=== PATIENT | female | born 1945 | race Caucasian/White ===

== ENCOUNTER 2021-04-21 14:47 | Inpatient (IN) ==
--- NOTE | 2021-04-21 15:27 | Emergency Department Note ---
Chest Pain HPI General Chief Complaint: Chest Pain Stated Complaint: chest pain, SOB Time Seen by Provider: 04/21/21 15:22 Source: patient Mode of arrival: ambulatory Limitations: no limitations History of Present Illness HPI Narrative: Patient is a 76-year-old that arrives to the emergency department complaining of shortness of breath. History is provided by the patient. She says last Thursday after heavy snow fall she was shoveling her car out when she became suddenly lightheaded fatigued and short of breath. She rested for several minutes and then resumed her activity and once again became quite fatigued lightheaded and short of breath. This resolved after several minutes of rest. Over the past 2 days, she has also been having decreased exercise tolerance and feeling more short of breath. She says she feels quite fatigued and winded with minimal amounts of exertion. She has had a cough productive of nonpurulent sputum. She has mild discomfort in her epigastric region but denies any actual chest pain. She has never felt like this before. She was assessed by her daughter who is a medical professional and was found to be hypoxemic so she decided to come to the emergency department for further evaluation. She took 162 mg of aspirin prior to emergency department arrival. She has not been vaccinated for COVID-19. Related Data Allergies Allergy/AdvReac Type Severity Reaction Status Date / Time No Known Drug Allergies Allergy Unverified 04/21/21 14:52 Review of Systems ROS ROS Narrative: Narrative: All systems ED: reviewed and negative except as stated. Gastrointestinal: Denies abdominal pain, nausea, vomiting or diarrhea PFSH Narrative Patient History Narrative: Narrative: Medical/Surgical/Family History All Active Problems (Updated 04/21/21 @ 17:20 by Richard Lombardi DO) Pulmonary embolism (Acute) Social History Smoking Status: Never smoker Alcohol Intake Frequency: does not drink Substance Use: does not use Exam Narrative Narrative: I reviewed the vital signs. Gen -patient is awake and alert and in no acute distress. The patient is well groomed. HEENT -head is atraumatic. There is no conjunctival pallor or scleral icterus. Mucous membranes are moist. CV -S1-S2 regular rate and rhythm. Peripheral pulses are equal to palpation in bilateral upper extremities. There is no JVD. Resp -breathing is nonlabored. Lungs have mild rhonchi bilaterally. There is no cyanosis. GI - Abdomen is soft and nontender to palpation. There is no guarding or rebound tenderness. Derm -skin is warm and dry. There is no visible rash. MSK -present extremities are atraumatic. Psych -patient has appropriate affect. The patient does not appear internally stimulated. Neuro -patient answers questions appropriately with fluent speech. Patient moves all present extremities equally. General Limitations: no limitations Course Vital Signs Vital signs: Vital Signs Pulse Rate 77 04/21/21 14:58 Respiratory Rate 19 04/21/21 14:58 Blood Pressure 171/92 04/21/21 14:58 Pulse Oximetry (%) 89 L 04/21/21 14:58 Temperature 96.9 F L 04/21/21 15:00 Pulse Rate 79 04/21/21 17:01 Respiratory Rate 16 04/21/21 17:01 Blood Pressure 181/110 04/21/21 17:01 Pulse Oximetry (%) 94 04/21/21 17:01 [facility] Narrative Medical decision making narrative: Patient presents with fatigue and decreased exercise tolerance. I personally performed interpreted limited bedside transthoracic echocardiogram and pulmonary ultrasound. Lung gutiérrez are Predominant bilaterally. I obtained parasternal long and short axis views which were somewhat limited by the patient's body habitus and positioning. There is no pericardial effusion. There is no evidence of right ventricular strain. There is slightly diminished left ventricular ejection fraction. Given the patient's clear chest x-ray and clear ultrasound findings I obtained a CT pulmonary angiogram to evaluate her hypoxia this reveals multiple bilateral pulmonary emboli. The patient has normal troponin and elevated BNP. I discussed the test results with the patient. Given her elevated BNP and her new oxygen requirement I recommended she be admitted for further treatment and stabilization and she was agreeable. I discussed the patient's history examination and diagnostic findings with Dr. Syed, who agrees with the plan of care and accepts admission. Critical care time I provided 32 minutes of critical care time. This was in addition to any separately billable procedures. The patient was given supplemental oxygen to treat her hypoxemic respiratory failure. She was given IV heparin to stabilize her pulmonary embolus and prevent further clot propagation which could lead to hemodynamic instability. the patient was closely monitored for response to treatment and stability of vital signs throughout their emergency department stay. Lab Data Lab results reviewed: Yes I reviewed the patient's lab results. Result diagrams: 04/21/21 15:04 04/21/21 15:04 Labs: Lab Results 04/21/21 04/21/21 04/21/21 Range/Units 15:04 15:04 15:04 WBC 10.8 (4.5-11.0) K/mcL RBC 4.54 (3.59-5.38) M/mcL Hgb 14.1 (11.2-15.7) g/dL Hct 43.1 (34.1-44.9) % MCV 94.9 (80.0-100.0) fL MCH 31.1 (26.0-34.0) pg MCHC 32.7 (31.0-36.0) g/dL RDW 16.0 H (11.5-14.5) % Plt Count 237 (140-440) K/mcL MPV 10.8 H (7.4-10.4) fL Neut % (Auto) 68.0 (38.0-78.0) % Lymph % (Auto) 22.8 (15.5-49.0) % [place] % (Auto) 7.3 (1.0-12.0) % Eos % (Auto) 1.4 (0.0-7.0) % Baso % (Auto) 0.5 (0.0-2.0) % Lymph # (Auto) 2.46 (1.50-4.80) K/mcL [place] # (Auto) 0.79 (0.10-0.90) K/mcL Eos # (Auto) 0.15 (0.00-0.70) K/mcL Baso # (Auto) 0.05 (0.00-0.30) K/mcL Absolute Neutrophils 7.35 (1.80-8.00) K/mcL APTT (20.0-37.0) sec Sodium 139 (133-145) mmol/L Potassium 4.1 (3.3-5.1) mmol/L Chloride 105 (96-108) mmol/L Carbon Dioxide 20 L (22-30) mmol/L Anion Gap 14.0 (8.0-16.0) BUN 18 (8-23) mg/dL Creatinine 0.8 (0.6-1.1) mg/dL POC Creatinine (0.6-1.2) mg/dL GFR Calculation 72 Glucose 119 H (70-105) mg/dL Calcium 8.5 L (8.6-10.4) mg/dL Total Bilirubin 0.5 (0.1-1.0) mg/dL AST 64 H (<32) U/L ALT 85 H (<40) U/L Alkaline Phosphatase 137 H (39-117) U/L NT-Pro-B Natriuret Pep (<450.0) pg/mL Total Protein 6.6 (5.9-8.4) gm/dL Albumin 3.8 (3.2-5.2) gm/dL Globulin 2.8 (2.2-3.7) gm/dL Albumin/Globulin Ratio 1.4 (1.0-2.3) POC Troponin I 0.03 (0.02-0.08) ng/mL 04/21/21 04/21/21 04/21/21 Range/Units 15:04 15:48 15:48 WBC (4.5-11.0) K/mcL RBC (3.59-5.38) M/mcL Hgb (11.2-15.7) g/dL Hct (34.1-44.9) % MCV (80.0-100.0) fL MCH (26.0-34.0) pg MCHC (31.0-36.0) g/dL RDW (11.5-14.5) % Plt Count (140-440) K/mcL MPV (7.4-10.4) fL Neut % (Auto) (38.0-78.0) % Lymph % (Auto) (15.5-49.0) % [place] % (Auto) (1.0-12.0) % Eos % (Auto) (0.0-7.0) % Baso % (Auto) (0.0-2.0) % Lymph # (Auto) (1.50-4.80) K/mcL [place] # (Auto) (0.10-0.90) K/mcL Eos # (Auto) (0.00-0.70) K/mcL Baso # (Auto) (0.00-0.30) K/mcL Absolute Neutrophils (1.80-8.00) K/mcL APTT 26.6 (20.0-37.0) sec Sodium (133-145) mmol/L Potassium (3.3-5.1) mmol/L Chloride (96-108) mmol/L Carbon Dioxide (22-30) mmol/L Anion Gap (8.0-16.0) BUN (8-23) mg/dL Creatinine (0.6-1.1) mg/dL POC Creatinine 0.7 (0.6-1.2) mg/dL GFR Calculation Glucose (70-105) mg/dL Calcium (8.6-10.4) mg/dL Total Bilirubin (0.1-1.0) mg/dL AST (<32) U/L ALT (<40) U/L Alkaline Phosphatase (39-117) U/L NT-Pro-B Natriuret Pep 2792.0 H (<450.0) pg/mL Total Protein (5.9-8.4) gm/dL Albumin (3.2-5.2) gm/dL Globulin (2.2-3.7) gm/dL Albumin/Globulin Ratio (1.0-2.3) POC Troponin I (0.02-0.08) ng/mL ED POC Tests ED POC Tests: ISSAC - Influenza A Negative ISSAC - Influenza B Negative ISSAC - SARS Antigen Negative EKG Data EKG #1: EKG attestation: Yes I reviewed and interpreted this EKG. EKG results narrative: EKG performed at 2:51 PM: Sinus rhythm, rate 83. Normal P wave morphology. Left bundle branch block without Sgarbossa's criteria. There is artifact present in V6. Normal MA and QTc duration. No old EKG immediately available for comparison. EKG was interpreted by me. EKG #2: EKG attestation: Yes I reviewed and interpreted this EKG. EKG results narrative: EKG performed at 3:40 PM: Sinus rhythm, rate 75. Normal P wave morphology. Few PVCs. Left bundle branch block without Sgarbossa's criteria. Normal MA and QTc duration. No significant changes compared to the prior EKG. EKG was interpreted by me. Discharge Plan Patient/Caregiver Discharge Instructions Pt seen by STORE ASSISTANT/PA only: No Clinical Impression: Pulmonary embolism Patient Disposition: Xfer As Inpt ([facility]) Follow up with: No,PCP [Primary Care Provider] -
[2021-04-21 16:11] LABS: Basophils # (Auto) 0.05 K/mcL (0.00-0.30); Basophils % (Auto) 0.5 % (0.0-2.0); Eosinophils # (Auto) 0.15 K/mcL (0.00-0.70); Eosinophils % (Auto) 1.4 % (0.0-7.0); Hematocrit 43.1 % (34.1-44.9); Hemoglobin 14.1 g/dL (11.2-15.7); Lymphocytes # (Auto) 2.46 K/mcL (1.50-4.80); Lymphocytes % (Auto) 22.8 % (15.5-49.0); Mean Cell Volume 94.9 fL (80.0-100.0); Mean Corpuscular HGB Conc 32.7 g/dL (31.0-36.0); Mean Platelet Volume 10.8 fL (7.4-10.4); Monocytes # (Auto) 0.79 K/mcL (0.10-0.90); Monocytes % (Auto) 7.3 % (1.0-12.0); Platelet Count 237 K/mcL (140-440); RBC 4.54 M/mcL (3.59-5.38); WBC 10.8 K/mcL (4.5-11.0)
[2021-04-21 16:32] LABS: ALT/SGPT 85 U/L (<40); AST/SGOT 64 U/L (<32); Albumin 3.8 gm/dL (3.2-5.2); Albumin/Globulin Ratio 1.4 (1.0-2.3); Alkaline Phosphatase 137 U/L (39-117); Bilirubin,Total 0.5 mg/dL (0.1-1.0); Blood Urea Nitrogen 18 mg/dL (8-23); Calcium 8.5 mg/dL (8.6-10.4); Carbon Dioxide 20 mmol/L (22-30); Chloride 105 mmol/L (96-108); Globulin 2.8 gm/dL (2.2-3.7); Glomerular Filtration Rate 72; Glucose 119 mg/dL (70-105)
--- NOTE | 2021-04-21 16:34 | XRay Report ---
HISTORY: History: Chest pain and shortness of breath for one week FINDINGS: The heart is mildly enlarged. The pulmonary vessels, best seen in the left upper lobe are mildly engorged. There is no pulmonary edema, pneumonia or mass. There is no pleural effusion. Aorta is mildly tortuous. There is a small sclerotic bone island or enchondroma in the neck of of left humerus. Moderate arthritis is present at the right acromioclavicular joint. IMPRESSION: Mild cardiomegaly with borderline pulmonary vascular congestion Interpreted and Authenticated by: Teja Isbell 04/21/21
--- NOTE | 2021-04-21 16:44 | Cat Scan Report ---
History: Chest pain, shortness of breath, probable pulmonary emboli TECHNIQUE: Following injection of intravenous nonionic contrast, pulmonary arterial phase images were obtained. Sagittal, coronal and axial MIPS images were created. The radiation exposure was limited using dose reduction technology. FINDINGS: There are multiple bilateral pulmonary emboli involving second and third order arteries in both lungs. There is involvement in all lobes. The main pulmonary artery and the left and right first order pulmonary arteries are normal. The main pulmonary artery is slightly dilated and measures 3.5 cm in transverse diameter. The ascending aorta is 3.3 cm. Right ventricle is not dilated. There is mild cardiomegaly. Subtle groundglass alveolar opacities are present in the left upper lobe. There are subpleural bands of scar atelectasis in both lower lobes. No pleural effusion is present. There are no enlarged lymph nodes. There is an incidental aberrant bronchus to the right upper lobe which arises from the right side of the trachea, above the brian. There is degenerative disc disease and arthritis at multiple levels in the thoracic and lumbar spine. IMPRESSION: Multiple bilateral pulmonary emboli Mildly dilated central pulmonary artery but no ventricular dilatation Subtle groundglass alveolar opacity in the left upper lobe. This could be related to pulmonary emboli or the patient may have a superimposed infection such as COVID. Dr. Lombardi was called with the report Interpreted and Authenticated by: Teja Isbell 04/21/21
[2021-04-21] MEDS ORDERED: HEPARIN 5,000 UNIT/ML VIAL IV ONE (16:46)
[2021-04-21] MEDS ORDERED: HEPARIN SOD,PORK IN 0.45% NACL 25,000 UNIT/500 ML BAG IV SCH (17:00)
--- NOTE | 2021-04-21 18:11 | Internal Med History&Physical ---
HPI History of Present Illness Patient information: Note initiated : 04/21/21 at 5:58 pm Service Date, if different from initiated Date: [] Patient: Madisyn De Santiago 76 y/o F admitted on for chest pain, SOB. Chief Complaint: [] History of present illness: Madisyn De Santiago is a 76-year-old female with a history of obesity, mild valvular disease but no other known medical conditions who presented to the ED with progressive shortness of breath. About a week ago, her symptoms started when she was shoveling snow and have progressively worsened. In the emergency department the patient was found to be hypoxic. Work-up Which showed mild cardiomegaly with borderline pulmonary vascular congestion. A CTA chest was done which showed bilateral pulmonary emboli. The CTA chest also showed groundglass opacities in the left upper lobe of uncertain etiology. There was no evidence of right ventricular strain on the CT scan. NT proBNP was elevated at 2792, troponin was normal. EKG showed normal sinus rhythm with a left bundle branch block. The patient does not have a prior history of DVT nor does she have a family history of blood clots. The patient denies ever having a colonoscopy or a mammogram. She has not had any recent surgeries, does not take any medications that could predispose her to DVT, no recent immobilization. This appears to be an unprovoked pulmonary embolism. We discussed CODE STATUS in detail prior to admission, the patient wishes to be full code. Review of systems Constitutional: Positive for fatigue, denies chills or fevers Eyes: no vision changes or pain Cardiovascular: Positive for chest discomfort Respiratory: Positive for dyspnea Gastrointestinal: no abdominal pain, no nausea, vomiting, or diarrhea Genitourinary: no dysuria or difficulty voiding Musculoskeletal: no arthralgia or myalgia Integumentary: no skin lesion or wound Neurological: no focal weakness or numbness Psychiatric: no anxiety or depression Physical exam Head: Atraumatic, normal inspection. Eyes: normal appearance, no scleral icterus. Neck: full ROM Respiratory: Nasal cannula oxygen at 4 L/min, no respiratory distress. Cardiovascular: normal rate and rhythm, S1, S2. GI/Abdominal: soft, nontender, no guarding. Extremities: full range of motion, nontender. Neurological: CN II-XII intact, intact motor, intact sensation. Psychiatric: normal mood. Skin: warm, normal color PFSH PFSH All Active Problems (Updated 04/21/21 @ 17:20 by Richard Lombardi DO) Pulmonary embolism (Acute) Social History alcohol intake frequency: does not drink substance use type: does not use MEDS/ALLERGIES Home Medications and Allergies Allergies Allergy/AdvReac Type Severity Reaction Status Date / Time No Known Drug Allergies Allergy Unverified 04/21/21 14:52 EXAM Constitutional Vitals: Temp Pulse Resp BP Pulse Ox 96.9 F L 73 21 141/99 93 04/21/21 15:00 04/21/21 17:50 04/21/21 17:50 04/21/21 17:46 04/21/21 17:50 DATA Data Completed and Pending Labs: Labs from last 24 hours 04/21/21 04/21/21 04/21/21 15:48 15:48 15:04 WBC RBC Hgb Hct MCV MCH MCHC RDW Plt Count MPV Neut % (Auto) Lymph % (Auto) [place] % (Auto) Eos % (Auto) Baso % (Auto) Lymph # (Auto) [place] # (Auto) Eos # (Auto) Baso # (Auto) Absolute Neutrophils APTT 26.6 Sodium Potassium Chloride Carbon Dioxide Anion Gap BUN Creatinine POC Creatinine 0.7 GFR Calculation Glucose Calcium Total Bilirubin AST ALT Alkaline Phosphatase NT-Pro-B Natriuret Pep 2792.0 H Total Protein Albumin Globulin Albumin/Globulin Ratio POC Troponin I 04/21/21 04/21/21 04/21/21 15:04 15:04 15:04 WBC 10.8 RBC 4.54 Hgb 14.1 Hct 43.1 MCV 94.9 MCH 31.1 MCHC 32.7 RDW 16.0 H Plt Count 237 MPV 10.8 H Neut % (Auto) 68.0 Lymph % (Auto) 22.8 [place] % (Auto) 7.3 Eos % (Auto) 1.4 Baso % (Auto) 0.5 Lymph # (Auto) 2.46 [place] # (Auto) 0.79 Eos # (Auto) 0.15 Baso # (Auto) 0.05 Absolute Neutrophils 7.35 APTT Sodium 139 Potassium 4.1 Chloride 105 Carbon Dioxide 20 L Anion Gap 14.0 BUN 18 Creatinine 0.8 POC Creatinine GFR Calculation 72 Glucose 119 H Calcium 8.5 L Total Bilirubin 0.5 AST 64 H ALT 85 H Alkaline Phosphatase 137 H NT-Pro-B Natriuret Pep Total Protein 6.6 Albumin 3.8 Globulin 2.8 Albumin/Globulin Ratio 1.4 POC Troponin I 0.03 A/P Narrative A/P Narrative: Assessment: 76-year-old female with a history of obesity, reported mild valvular disease but known additional medical history admitted for acute hypoxic respiratory failure secondary to moderate risk acute bilateral pulmonary embolism. Pulmonary embolism appears to be unprovoked, NT pro BNP elevated, troponin normal. The patient was admitted with a new oxygen requirement of about 4 L/min. #Acute hypoxic respiratory failure #Bilateral pulmonary embolism (moderate risk), probably unprovoked #Elevated blood pressure, probable essential hypertension #Elevated LFTs #Subtle groundglass opacity in left upper lobe #Obesity Plan -Start therapeutic Lovenox SQ twice daily, discontinued heparin infusion. -Oxygen supplementation, wean as able. -Echo to evaluate for RV strain -Hepatitis C antibody with reflex, hepatitis B surface antigen. -Follow LFTs. -SARS-CoV-2 PCR -Evaluate insurance co-pays for DOAC, if DOAC unaffordable will transition to Coumadin. -Consider antihypertensive medication. 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 Establish with PCP for outpatient age-appropriate cancer screening. Time Spent With Patient Time: Total time spent is greater than 50% in coordination of care (as documented) at patient's floor/unit and/or counseling patient:
[2021-04-21] MEDS ORDERED: ONDANSETRON 4 MG/2 ML VIAL IV PRN (19:19)
[2021-04-21] MEDS: ENOXAPARIN 100 MG/ML SYRINGE SQ SCH (21:06)
[2021-04-21] MEDS: SENNOSIDES 1 TABLET PO SCH (21:06)
[2021-04-21] MEDS: DOCUSATE SODIUM 100 MG CAPSULE PO SCH (21:06)
[2021-04-21] MEDS: 0.9 % SODIUM CHLORIDE 10 ML SYRINGE IV SCH (21:07)
--- NOTE | 2021-04-21 21:13 | EKG ---
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
--- NOTE | 2021-04-21 21:13 | EKG ---
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
[2021-04-22] MEDS: 0.9 % SODIUM CHLORIDE 10 ML SYRINGE IV SCH ×3 (05:26→20:43)
[2021-04-22 07:44] LABS: Basophils # (Auto) 0.07 K/mcL (0.00-0.30); Basophils % (Auto) 0.9 % (0.0-2.0); Eosinophils # (Auto) 0.35 K/mcL (0.00-0.70); Eosinophils % (Auto) 4.4 % (0.0-7.0); Hematocrit 39.2 % (34.1-44.9); Hemoglobin 12.6 g/dL (11.2-15.7); Lymphocytes # (Auto) 2.05 K/mcL (1.50-4.80); Lymphocytes % (Auto) 25.6 % (15.5-49.0); Mean Cell Volume 94.9 fL (80.0-100.0); Mean Corpuscular HGB Conc 32.1 g/dL (31.0-36.0); Mean Platelet Volume 11.1 fL (7.4-10.4); Monocytes # (Auto) 0.61 K/mcL (0.10-0.90); Monocytes % (Auto) 7.6 % (1.0-12.0); Neutrophils % (Auto) 61.5 % (38.0-78.0); Platelet Count 219 K/mcL (140-440); RBC 4.13 M/mcL (3.59-5.38); Red Cell Distribution Width 15.8 % (11.5-14.5)
[2021-04-22 08:21] LABS: ALT/SGPT 72 U/L (<40); AST/SGOT 49 U/L (<32); Albumin 3.3 gm/dL (3.2-5.2); Albumin/Globulin Ratio 1.3 (1.0-2.3); Alkaline Phosphatase 112 U/L (39-117); Bilirubin,Total 0.7 mg/dL (0.1-1.0); Blood Urea Nitrogen 12 mg/dL (8-23); Carbon Dioxide 22 mmol/L (22-30); Chloride 106 mmol/L (96-108); Globulin 2.6 gm/dL (2.2-3.7); Glomerular Filtration Rate 84; Glucose 93 mg/dL (70-105)
[2021-04-22 08:38] LABS: Hepatitis C Virus Antibody Non-Reactive (Non-Reactive)
[2021-04-22] MEDS: ENOXAPARIN 100 MG/ML SYRINGE SQ SCH ×2 (09:20→20:45)
[2021-04-22] MEDS: DOCUSATE SODIUM 100 MG CAPSULE PO SCH ×2 (09:20→20:43)
--- NOTE | 2021-04-22 17:11 | Internal Med Progress Note ---
SUBJECTIVE Subjective Patient information: Note initiated : 04/22/21 at 5:05 pm Service Date, if different from initiated Date: [] Patient: Madisyn De Santiago 76 y/o F admitted on 04/21/21 for chest pain, SOB. Chief Complaint: [] Interval history: Madisyn De Santiago is a 76-year-old female with a history of obesity, mild valvular disease but no other known medical conditions who presented to the ED with progressive shortness of breath. About a week ago, her symptoms started when she was shoveling snow and have progressively worsened. In the emergency department the patient was found to be hypoxic. Work-up Which showed mild cardiomegaly with borderline pulmonary vascular congestion. A CTA chest was done which showed bilateral pulmonary emboli. The CTA chest also showed groundglass opacities in the left upper lobe of uncertain etiology. There was no evidence of right ventricular strain on the CT scan. NT proBNP was elevated at 2792, troponin was normal. EKG showed normal sinus rhythm with a left bundle branch block. The patient does not have a prior history of DVT nor does she have a family history of blood clots. The patient denies ever having a colonoscopy or a mammogram. She has not had any recent surgeries, does not take any medications that could predispose her to DVT, no recent immobilization. This appears to be an unprovoked pulmonary embolism. We discussed CODE STATUS in detail prior to admission, the patient wishes to be full code. 1/10 Feels generally weak, weaned to room air today but hypoxic overnight. SARS-CoV-2 PCR resulted as not detected. TTE showed a LV EF of 30-35%, moderately dilated RV and mildly reduced systolic function. CM looking copay for DOAC. Anticipate the patient will need a SNF for rehab. Physical exam Head: Atraumatic, normal inspection. Eyes: normal appearance, no scleral icterus. Neck: full ROM Respiratory: Nasal cannula oxygen at 4 L/min, no respiratory distress. Cardiovascular: normal rate and rhythm, S1, S2. GI/Abdominal: soft, nontender, no guarding. Extremities: full range of motion, nontender. Neurological: CN II-XII intact, intact motor, intact sensation. Psychiatric: normal mood. Skin: warm, normal color Constitutional Vitals: Vital Signs Temp Pulse Resp BP Pulse Ox 96.9 F L 68 20 142/66 93 04/22/21 12:00 04/22/21 12:00 04/22/21 12:00 04/22/21 12:00 04/22/21 12:00 Period Temp Pulse Resp BP Sys/Chaudhry Pulse Ox Last 24 Hr 96.9 F-98.7 F 60-92 14-28 130-180/66-102 90-97 Intake and Output 04/22/21 04/22/21 04/22/21 05:59 13:59 21:59 Intake Total 200 500 450 Output Total 675 100 550 Balance -475 400 -100 Weight 88.405 kg Patient Weight 04/23/21 05:59 Weight 88.405 kg Intake & Output: Intake & Output 04/22/21 04/22/21 04/22/21 05:59 13:59 21:59 Intake Total 200 500 450 Output Total 675 100 550 Balance -475 400 -100 Weight 88.405 kg Intake: IV 500 HEPARIN/0.45%NS 25,000 unit In 500 500 ml @ 14 UNIT/KG/HR 22.861 mls/hr IV .[id number] [facility] Rx#: [id number] Oral 200 450 Output: Urine Catheter Amount 550 Void Amount 675 100 Other: Meal Breakfast Percent of Meal Consumed 75% Feeding Ability Independent Urine Appearance Clear Clear Urine Color Bright Yellow Straw Bright Yellow Urine Odor Normal Normal Stool Size Small Small Stool Color Brown Brown Stool Consistency Formed Normal for Patient # Bowel Movements 1 1 OBJ DATA Labs CBC & Chem 7: 04/22/21 13:58 04/22/21 06:14 Labs: Abnormal Lab Results 04/22/21 04/22/21 04/21/21 06:15 06:14 15:04 RDW 15.8 H MPV 11.1 H Carbon Dioxide Glucose Calcium 8.0 L AST 49 H ALT 72 H Alkaline Phosphatase NT-Pro-B Natriuret Pep 2792.0 H 04/21/21 04/21/21 15:04 15:04 RDW 16.0 H MPV 10.8 H Carbon Dioxide 20 L Glucose 119 H Calcium 8.5 L AST 64 H ALT 85 H Alkaline Phosphatase 137 H NT-Pro-B Natriuret Pep Meds: Medications Docusate Sodium (Docusate Sodium 100 Mg Capsule) 100 mg PO BID [facility] Last Admin: 04/22/21 09:20 Dose: 100 mg Documented by: Enoxaparin Sodium (Enoxaparin 100 Mg/Ml Syringe) 100 mg SQ Q12H [facility] Last Admin: 04/22/21 09:20 Dose: 100 mg Documented by: Ondansetron HCl (Ondansetron 4 Mg/2 Ml Vial) 4 mg IV Q6HP PRN PRN Reason: Nausea And Vomiting Senna (Sennosides 1 Tablet) 2 tab PO HS [facility] Last Admin: 04/21/21 21:06 Dose: Not Given Documented by: Sodium Chloride (0.9 % Sodium Chloride 10 Ml Syringe) 10 ml IV Q8 [facility] Last Admin: 04/22/21 15:59 Dose: 10 ml Documented by: A/P Narrative A/P Narrative: Assessment: 76-year-old female with a history of obesity, reported mild valvular disease but known additional medical history admitted for acute hypoxic respiratory failure secondary to moderate risk acute bilateral pulmonary embolism. Pulmonary embolism appears to be unprovoked. Further workup included a TTE that showed a dilated RV with mildly reduced systolic function and a LV EF of 30-35%. #Acute hypoxic respiratory failure #Bilateral pulmonary embolism, unprovoked #Reduced left ventricular ejection fraction 30-35% #Mildly reduced right ventricle systolic function scondary to PE #Essential hypertension #Elevated LFTs likely due to WEIR #Subtle groundglass opacity in left upper lobe likely due to PE #Obesity Plan -Continue therapeutic Lovenox SQ twice daily, transition to DOAC soon depending on insurance coverage. -Oxygen supplementation as needed. -Start lisinopril 5 mg daily and Toprol 6.25 mg daily for reduced LV EF and hypertension, titrate as tolerted. 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 -CODE STATUS: Full -Disposition: Home when stable and on appropriate oral anticoagulation for 6 months of treatment. Establish with PCP for outpatient age-appropriate cancer screening. Follow up TTE after about 3 months of goal directed medical therapy for reduced LF EF. Outpatient sleep study. Time Spent With Patient Time: Total time spent is greater than 50% in coordination of care (as documented) at patient's floor/unit and/or counseling patient: QUALITY VTE Deep Vein Thrombosis/Pulmonary Embolism Present on Admission: Yes
[2021-04-22] MEDS ORDERED: METOPROLOL SUCCINATE 25 MG TAB.XL.24H PO SCH ×2 (17:20)
[2021-04-22] MEDS: METOPROLOL SUCCINATE 25 MG TAB.XL.24H PO SCH (17:40)
[2021-04-22] MEDS: SENNOSIDES 1 TABLET PO SCH (20:43)
[2021-04-23] MEDS: 0.9 % SODIUM CHLORIDE 10 ML SYRINGE IV SCH ×3 (06:03→20:41)
[2021-04-23 07:26] LABS: Basophils # (Auto) 0.04 K/mcL (0.00-0.30); Basophils % (Auto) 0.5 % (0.0-2.0); Eosinophils # (Auto) 0.33 K/mcL (0.00-0.70); Eosinophils % (Auto) 4.3 % (0.0-7.0); Hematocrit 38.4 % (34.1-44.9); Hemoglobin 12.6 g/dL (11.2-15.7); Lymphocytes # (Auto) 2.05 K/mcL (1.50-4.80); Lymphocytes % (Auto) 26.8 % (15.5-49.0); Mean Cell Volume 95.3 fL (80.0-100.0); Mean Corpuscular HGB Conc 32.8 g/dL (31.0-36.0); Mean Platelet Volume 10.7 fL (7.4-10.4); Monocytes # (Auto) 0.54 K/mcL (0.10-0.90); Monocytes % (Auto) 7.1 % (1.0-12.0); Neutrophils % (Auto) 61.3 % (38.0-78.0); Platelet Count 237 K/mcL (140-440); RBC 4.03 M/mcL (3.59-5.38); Red Cell Distribution Width 15.7 % (11.5-14.5); WBC 7.7 K/mcL (4.5-11.0)
[2021-04-23 08:06] LABS: ALT/SGPT 59 U/L (<40); AST/SGOT 34 U/L (<32); Albumin 3.4 gm/dL (3.2-5.2); Albumin/Globulin Ratio 1.5 (1.0-2.3); Alkaline Phosphatase 109 U/L (39-117); Bilirubin,Total 0.6 mg/dL (0.1-1.0); Blood Urea Nitrogen 12 mg/dL (8-23); Calcium 8.4 mg/dL (8.6-10.4); Carbon Dioxide 23 mmol/L (22-30); Chloride 104 mmol/L (96-108); Globulin 2.2 gm/dL (2.2-3.7); Glomerular Filtration Rate 84; Glucose 95 mg/dL (70-105)
[2021-04-23] MEDS: ENOXAPARIN 100 MG/ML SYRINGE SQ SCH (08:27)
[2021-04-23] MEDS: LISINOPRIL 5 MG TABLET PO SCH (08:28)
[2021-04-23] MEDS: METOPROLOL SUCCINATE 25 MG TAB.XL.24H PO SCH (08:28)
[2021-04-23] MEDS: DOCUSATE SODIUM 100 MG CAPSULE PO SCH ×3 (08:28→20:43)
[2021-04-23] MEDS ORDERED: LISINOPRIL 5 MG TABLET PO SCH (09:00)
[2021-04-23] MEDS ORDERED: ACETAMINOPHEN 325 MG TABLET PO PRN (09:55)
[2021-04-23] MEDS ORDERED: FUROSEMIDE 40 MG/4 ML VIAL IV ONE (11:39)
--- NOTE | 2021-04-23 13:37 | Internal Med Progress Note ---
SUBJECTIVE Subjective Patient information: Note initiated : 04/23/21 at 1:36 pm Service Date, if different from initiated Date: [] Patient: Madisyn De Santiago 76 y/o F admitted on 04/21/21 for chest pain, SOB. Chief Complaint: [] Interval history: Madisyn De Santiago is a 76-year-old female with a history of obesity, mild valvular disease but no other known medical conditions who presented to the ED with progressive shortness of breath. About a week ago, her symptoms started when she was shoveling snow and have progressively worsened. In the emergency department the patient was found to be hypoxic. Work-up Which showed mild cardiomegaly with borderline pulmonary vascular congestion. A CTA chest was done which showed bilateral pulmonary emboli. The CTA chest also showed groundglass opacities in the left upper lobe of uncertain etiology. There was no evidence of right ventricular strain on the CT scan. NT proBNP was elevated at 2792, troponin was normal. EKG showed normal sinus rhythm with a left bundle branch block. The patient does not have a prior history of DVT nor does she have a family history of blood clots. The patient denies ever having a colonoscopy or a mammogram. She has not had any recent surgeries, does not take any medications that could predispose her to DVT, no recent immobilization. This appears to be an unprovoked pulmonary embolism. We discussed CODE STATUS in detail prior to admission, the patient wishes to be full code. 04/22 Feels generally weak, weaned to room air today but hypoxic overnight. SARS-CoV-2 PCR resulted as not detected. TTE showed a LV EF of 30-35%, moderately dilated RV and mildly reduced systolic function. CM looking copay for DOAC. Anticipate the patient will need a SNF for rehab. 04/23 Started Toprol and Lisinopril for reduced LF ejection fraction and gave Lasix 40 mg IV once today. Will see if the patient's respiratory status improves, if so will start oral lasix before discharge. Physical exam Head: Atraumatic, normal inspection. Eyes: normal appearance, no scleral icterus. Neck: full ROM Respiratory: Nasal cannula oxygen at 4 L/min, no respiratory distress. Cardiovascular: normal rate and rhythm, S1, S2. GI/Abdominal: soft, nontender, no guarding. Extremities: full range of motion, nontender. Neurological: CN II-XII intact, intact motor, intact sensation. Psychiatric: normal mood. Skin: warm, normal color Constitutional Vitals: Vital Signs Temp Pulse Resp BP Pulse Ox 98.3 F 72 20 151/82 94 04/23/21 12:00 04/23/21 12:00 04/23/21 12:00 04/23/21 12:00 04/23/21 12:00 Period Temp Pulse Resp BP Sys/Chaudhry Pulse Ox Last 24 Hr 97.2 F-99 F 62-72 20-24 147-164/82-94 93-95 Intake and Output 04/22/21 04/23/21 04/23/21 21:59 05:59 13:59 Intake Total 450 300 850 Output Total 266 930 5201 Balance -100 -300 -400 Weight 88.723 kg Intake & Output: Intake & Output 04/22/21 04/23/21 04/23/21 21:59 05:59 13:59 Intake Total 450 300 850 Output Total 376 809 1542 Balance -100 -300 -400 Weight 88.723 kg Intake: Oral 450 300 850 Output: Urine Catheter Amount 550 Void Amount 600 1250 Other: Meal Breakfast Breakfast Percent of Meal Consumed 75% 100% Feeding Ability Independent Urine Appearance Clear Clear Clear Urine Color Bright Yellow Bright Yellow Bright Yellow Urine Odor Normal Normal Stool Size Moderate Stool Color Brown Stool Consistency Formed # Bowel Movements 1 OBJ DATA Labs CBC & Chem 7: 04/23/21 05:13 04/23/21 05:13 Labs: Abnormal Lab Results 04/23/21 04/23/21 04/22/21 05:13 05:13 06:15 RDW 15.7 H 15.8 H MPV 10.7 H 11.1 H Carbon Dioxide Glucose Calcium 8.4 L AST 34 H ALT 59 H Alkaline Phosphatase NT-Pro-B Natriuret Pep Total Protein 5.6 L 04/22/21 04/21/21 04/21/21 06:14 15:04 15:04 RDW MPV Carbon Dioxide 20 L Glucose 119 H Calcium 8.0 L 8.5 L AST 49 H 64 H ALT 72 H 85 H Alkaline Phosphatase 137 H NT-Pro-B Natriuret Pep 2792.0 H Total Protein 04/21/21 15:04 RDW 16.0 H MPV 10.8 H Carbon Dioxide Glucose Calcium AST ALT Alkaline Phosphatase NT-Pro-B Natriuret Pep Total Protein Meds: Medications Acetaminophen (Acetaminophen 325 Mg Tablet) 325 mg PO Q6HP PRN; Protocol PRN Reason: Per Pain Protocol Docusate Sodium (Docusate Sodium 100 Mg Capsule) 100 mg PO BID [facility] Last Admin: 04/23/21 08:28 Dose: 100 mg Documented by: Enoxaparin Sodium (Enoxaparin 100 Mg/Ml Syringe) 100 mg SQ Q12H [facility] Last Admin: 04/23/21 08:27 Dose: 100 mg Documented by: Lisinopril (Lisinopril 5 Mg Tablet) 5 mg PO DAILY [facility] Last Admin: 04/23/21 08:28 Dose: 5 mg Documented by: Metoprolol Succinate (Metoprolol Succinate 25 Mg Tab.Xl.24h) 12.5 mg PO DAILY [facility] Last Admin: 04/23/21 08:28 Dose: 12.5 mg Documented by: Ondansetron HCl (Ondansetron 4 Mg/2 Ml Vial) 4 mg IV Q6HP PRN PRN Reason: Nausea And Vomiting Senna (Sennosides 1 Tablet) 2 tab PO HS [facility] Last Admin: 04/22/21 20:43 Dose: Not Given Documented by: Sodium Chloride (0.9 % Sodium Chloride 10 Ml Syringe) 10 ml IV Q8 [facility] Last Admin: 04/23/21 12:00 Dose: 10 ml Documented by: A/P Narrative A/P Narrative: Assessment: 76-year-old female with a history of obesity, reported mild valvular disease but known additional medical history admitted for acute hypoxic respiratory failure secondary to moderate risk acute bilateral pulmonary embolism. Pulmonary embolism appears to be unprovoked. Further workup included a TTE that showed a dilated RV with mildly reduced systolic function and a LV EF of 30-35%. #Acute hypoxic respiratory failure #Bilateral pulmonary embolism, unprovoked #Reduced left ventricular ejection fraction 30-35% #Mildly reduced right ventricle systolic function secondary to PE #Essential hypertension #Elevated LFTs likely due to WEIR #Subtle groundglass opacity in left upper lobe likely due to PE #Obesity Plan -Start Xarelto 15 mg BID x21 days then transitino to Xarelto 20 mg daily for the remainder of 6 months. -Oxygen supplementation as needed. -Lasix 40 mg IV once, follow volume status. -Continue lisinopril 5 mg daily and Toprol 6.25 mg daily for reduced LV EF and hypertension, titrate as tolerated. -surveillance system monitor. -PT following. -CODE STATUS: Full -Disposition: Home when stable and on appropriate oral anticoagulation for 6 months of treatment. Establish with PCP for outpatient age-appropriate cancer screening. Follow up TTE after about 3 months of goal directed medical therapy for reduced LF EF =/- oral lasix. Outpatient sleep study. Time Spent With Patient Time: Total time spent is greater than 50% in coordination of care (as documented) at patient's floor/unit and/or counseling patient: QUALITY VTE Deep Vein Thrombosis/Pulmonary Embolism Present on Admission: Yes
[2021-04-23] MEDS: RIVAROXABAN 15 MG TABLET PO SCH (16:50)
[2021-04-23] MEDS: SENNOSIDES 1 TABLET PO SCH ×2 (20:41→20:44)
[2021-04-24] MEDS: 0.9 % SODIUM CHLORIDE 10 ML SYRINGE IV SCH ×2 (05:16→16:16)
[2021-04-24 06:52] LABS: ALT/SGPT 53 U/L (<40); AST/SGOT 35 U/L (<32); Albumin 3.6 gm/dL (3.2-5.2); Albumin/Globulin Ratio 1.6 (1.0-2.3); Alkaline Phosphatase 106 U/L (39-117); Bilirubin,Total 0.6 mg/dL (0.1-1.0); Blood Urea Nitrogen 14 mg/dL (8-23); Calcium 8.7 mg/dL (8.6-10.4); Carbon Dioxide 27 mmol/L (22-30); Chloride 104 mmol/L (96-108); Globulin 2.3 gm/dL (2.2-3.7); Glomerular Filtration Rate 84; Glucose 101 mg/dL (70-105)
[2021-04-24] MEDS: METOPROLOL SUCCINATE 25 MG TAB.XL.24H PO SCH (08:51)
[2021-04-24] MEDS: RIVAROXABAN 15 MG TABLET PO SCH (08:51)
[2021-04-24] MEDS: LISINOPRIL 5 MG TABLET PO SCH (08:52)
[2021-04-24] MEDS: DOCUSATE SODIUM 100 MG CAPSULE PO SCH (08:53)
--- NOTE | 2021-04-24 15:14 | Discharge Summary ---
Discharge Provider Provider Patient information: Note initiated : 04/24/21 at 3:08 pm Service Date, if different from initiated Date: [] Patient: Madisyn De Santiago 76 y/o F admitted on 04/21/21 for chest pain, SOB. Chief Complaint: [] Date of admission: 04/21/21 18:50 Discharge date: 04/24/21 Primary care physician: PCP No Consults: 04/21/21 Consult to Physician [CONS] Stat Comment: Consulting Provider: Mina Syed Reason For Exam: Physician to Consult Discharge Meds Discharge Medications Home Medications Vitamin D3 150 meq PO QDAY 04/21/21 [History Confirmed 04/21/21 Last Taken 04/20/21 08:00] coQ10 (ubiquinol) 1 cap PO QDAY 04/21/21 [History Confirmed 04/21/21 Last Taken 04/20/21 08:00] folic acid-vit B6-vit B12 500 mcg PO QDAY 04/21/21 [History Confirmed 04/21/21 Last Taken 04/20/21 08:00] Zinc with Vitamins 50 mg PO DAILY 04/22/21 [History Confirmed 04/22/21 Last Taken Unknown] omega-3 fatty acids 500 mg PO DAILY 04/22/21 [History Confirmed 04/24/21 Last Taken Unknown] rivaroxaban 15 mg (42)-20 mg (9) tablets in a starter pack (Xarelto DVT-PE Treat 30d Start) See Rx Instructions .ROUTE .COMPLEX #51 tab 04/23/21 [Rx Last Taken Unknown] furosemide 40 mg tablet (Lasix) 40 mg PO QAM #60 tab 04/24/21 [Rx Last Taken Unknown] lisinopril 5 mg tablet 5 mg PO DAILY #60 tab 04/24/21 [Rx Last Taken Unknown] metoprolol succinate 25 mg tablet,extended release 24 hr 12.5 mg PO DAILY #60 tab 04/24/21 [Rx Last Taken Unknown] rivaroxaban 20 mg tablet (Xarelto) 20 mg PO QDAY #130 tab 04/24/21 [Rx Last Taken Unknown] COURSE Hospital Course Hospital course: Madisyn De Santiago is a 76-year-old female with a history of obesity, mild valvular disease but no other known medical conditions who presented to the ED with progressive shortness of breath. About a week ago, her symptoms started when she was shoveling snow and have progressively worsened. In the emergency department the patient was found to be hypoxic. Work-up Which showed mild cardiomegaly with borderline pulmonary vascular congestion. A CTA chest was done which showed bilateral pulmonary emboli. The CTA chest also showed groundglass opacities in the left upper lobe of uncertain etiology. There was no evidence of right ventricular strain on the CT scan. NT proBNP was elevated at 2792, troponin was normal. EKG showed normal sinus rhythm with a left bundle branch block. The patient does not have a prior history of DVT nor does she have a family history of blood clots. The patient denies ever having a colonoscopy or a mammogram. She has not had any recent surgeries, does not take any medications that could predispose her to DVT, no recent immobilization. This appears to be an unprovoked pulmonary embolism. We discussed CODE STATUS in detail prior to admission, the patient wishes to be full code. 04/22 Feels generally weak, weaned to room air today but hypoxic overnight. SARS-CoV-2 PCR resulted as not detected. TTE showed a LV EF of 30-35%, moderately dilated RV and mildly reduced systolic function. CM looking copay for DOAC. Anticipate the patient will need a SNF for rehab. 04/23 Started on Lisinopril and Toprol for HFrEF, transitioned to Xarelto for anticoagulation. Once dose of Lasix 40 mg IV today. 04/24 [place] better after diuresing yesterday. Home oxygen evaluation today. Discharge to home with home health today. Xarelto with DVT/PE dosing to complete 6 months of anticoagulation therapy. Discharged on Lisinopril, Toprol, and Lasix daily for HFrEF. Post hospital follow up; -Evaluate for tolerance of anticoagulation, no GI bleeding, stable hemoglobin, etc. -Follow up renal function and electrolytes after recently started Lisinopril and Lasix. -Increased Toprol and Lisinopril doses as tolerated for HFrEF. -Outpatient cardiac stress test for reduced left ventricular ejection fraction. -Repeat TTE in about 3 months. -Consider referral to cardiology for HFrEF. Physical exam Head: Atraumatic, normal inspection. Eyes: normal appearance, no scleral icterus. Neck: full ROM Respiratory: nasal canula oxygen, no respiratory distress. Cardiovascular: normal rate and rhythm, S1, S2. GI/Abdominal: soft, nontender, no guarding. Extremities: full range of motion, nontender. Neurological: CN II-XII intact, intact motor, intact sensation. Psychiatric: normal mood. Skin: warm, normal color Discharge diagnosis: Pulmonary embolism Time Spent with Patient Time attestation: Total time spent providing and/or coordinating discharge services: EXAM Constitutional Vitals: Temp Pulse Resp BP Pulse Ox 98.1 F 64 20 121/74 92 04/24/21 12:00 04/24/21 12:00 04/24/21 12:00 04/24/21 12:00 04/24/21 12:00 Discharge Data Data Completed and Pending Labs on day of discharge: Labs from last 24 hours 04/24/21 05:36 Sodium 141 Potassium 4.3 Chloride 104 Carbon Dioxide 27 Anion Gap 10.0 BUN 14 Creatinine 0.7 GFR Calculation 84 Glucose 101 Calcium 8.7 Total Bilirubin 0.6 AST 35 H ALT 53 H Alkaline Phosphatase 106 Total Protein 5.9 Albumin 3.6 Globulin 2.3 Albumin/Globulin Ratio 1.6 Discharge Plan Patient/Caregiver Discharge Instructions Prescriptions: New Xarelto DVT-PE Treat 30d Start 15 mg (42)- 20 mg (9) tablets,dose pack See Rx Instructions .ROUTE .COMPLEX Qty: 51 0RF Rx Instructions: Take one-15 mg tablet twice daily for 21 days, then one-20 mg tablet once daily; must take with meal/food lisinopril 5 mg Tablet 5 mg PO DAILY Qty: 60 4RF metoprolol succinate 25 mg Tablet Extended Release 24 Hr 12.5 mg PO DAILY Qty: 60 4RF furosemide [Lasix] 40 mg tablet 40 mg PO QAM Qty: 60 4RF Xarelto 20 mg tablet 20 mg PO QDAY Qty: 130 0RF Rx Instructions: Take Xarelto 15 mg twice a day (from the starter pack separately prescribed) for a total of 21 days then transition to Xarelto 20 mg once a day for the remainder of a six month treatment period. Take with food. Continued coQ10 (ubiquinol) 1 cap PO QDAY 0RF folic acid-vit B6-vit B12 500 mcg PO QDAY 0RF Vitamin D3 150 meq PO QDAY 0RF Zinc with Vitamins 50 mg PO DAILY 0RF omega-3 fatty acids Capsule 500 mg PO DAILY 0RF Discontinued Adult Aspirin EC Low Strength 81 mg PO QDAY 0RF Other Ambulatory Orders: OT Discharge Order (Routine) Location: None Selected Ordered By: Mina Syed Physical Therapy at Discharge - General (Routine) Location: None Selected Ordered By: Mina Syed Follow Up Plan Follow up with: No,PCP [Primary Care Provider] - Patient Disposition: Home Health Service Overall status at discharge: patient is progressing back to baseline Discharge Orders: Discharge Order (Routine); Ordered 04/24/21 Ordered By: Mina Syed QUALITY VTE Deep Vein Thrombosis/Pulmonary Embolism Present on Admission: Yes
== END 2021-04-24 17:45 | disposition home health service (06) | DRG 175 ==
LOC: ED 14:47 → MEDSUR 18:50
PROVIDERS: ADMIT Internal Medicine; ATTEND Internal Medicine